=== PATIENT | female | born 1990 | race Hispanic/Latino ===

== ENCOUNTER 2017-07-06 18:43 | Emergency (ER) | payer MEDICARE, MEDICAID ==
[~2017-07-06] VITALS: Ht 170.2 cm; Wt 128.4 kg
[2017-07-06 19:04] VITALS: BP 119/81; PULSE 114; RESP 17; O2SAT 97
--- NOTE | 2017-07-06 21:04 | ED.REPORT ---
HPI-General Illness Date of Service Jul 06, 2017 ED Provider: Andrzej Miller DO Pt is a deaf 26 year old female with a history of HTN who presents to the ED complaining of a worsening rash on her right inner thigh onset today. She c/o associated right leg pain with swelling and difficulty walking secondary to the pain. Pt also c/o associated cough onset 2 weeks ago. Pt denies rash appearance following shaving. She denies . [employer] was used to obtain HPI from patient. Nursing Notes Stated Complaint: COUGH,RASH/WELTS IN BETWEEN THIGHS,PAINFUL Chief Complaint: Skin Rash/Abscess Nursing Notes Reviewed: Yes Allergies: Coded Allergies: No Known Allergies (Verified , 05/13/14) General Time Seen by MD: 21:03 Chief Complaint Rash Hx Obtained From: Patient Arrived By: Walk-in Sudden in Onset?: No Onset Occurred: 5 - 8 hours ago Symptom Duration: Since onset Location: : Thigh right Quality: Painful Radiation: : Does not radiate Severity: Current: Moderate Severity: Maximum: Moderate Recent Healthcare: No recent doctor visit, No recent hospitalization Similar Sx Previous: No Past Medical History Past Medical History Deaf Reports: Hypertension (stopped taking medication) Past Surgical History Reports: Cholecystectomy (2008) Smoking History Unknown if Ever Smoker Social History Alcohol Use: Denies alcohol use Drug Use: Denies drug use Other Social History: Good social support Ambulatory Status Independent Review of Systems Full Review of Systems Respiratory: Reports: Non-productive cough, Denies: Shortness of breath Musculoskeletal: Reports: Extremity pain Skin: Reports Rash, Reports Swelling Complete sys rev & neg: except as marked. Physical Exam Vital Signs Vital Signs Date Time Temp Pulse Resp B/P Pulse Ox O2 Delivery O2 Flow Rate FiO2 07/07/17 00:55 36.6 86 18 116/72 95 Room Air 07/06/17 22:30 37.2 92 22 141/78 94 Room Air 07/06/17 19:04 37.6 114 17 119/81 97 Room Air Initial VS: Reviewed Head / Eyes: Atraumatic, Normocephalic Neck: Supple, Full range of motion Cardiovascular: Regular rate & rhythm (heart rate 88), Heart sounds normal , Intact distal pulses Abdomen / GI: Soft, Non-tender Skin: Warm, Dry, No cyanosis Neurologic: Alert, Oriented, Nonfocal Psychiatric: Mood/affect normal, Behavior normal Respiratory / Chest: Atraumatic, Breath sounds = bilat Crackles in right upper lung field. Upper Extremities Upper Extremity / MS: Full range of motion, Neurologic intact, Vascular intact Induration and cellulitis to 10x4 area of the right medial thigh. No evidence of of abscess formation and no palpable abscess. The cellulitis does not extend to her labia, genitilia, or abdominal wall. Interpretation & Diagnostics VENOUS DUPLEX: No abscess or DVT. Reactive lymph nodes Lab Results Interpretation Result Diagram: 07/06/17 [id number] Test 07/06/17 20:10 07/06/17 20:20 07/06/17 21:47 Hold Urine Received (Received) Hold Purple Top Tube Received (Received) White Blood Count 23.2th/mm3 (3.8-10.1) Red Blood Count 4.36mil/mm3 (3.90-5.20) Hemoglobin 12.8g/dL (12.0-15.6) Hematocrit 38.8% (35.0-46.0) Mean Corpuscular Volume 89.0fL (81-100) Mean Corpuscular Hemoglobin 29.4pg (27.0-35.0) Mean Corpuscular Hemoglobin Concent 33.0% (32.0-37.0) Red Cell Distribution Width 13.4% (12.3-15.4) Platelet Count 294bil/L (150-400) Neutrophils (%) (Auto) 81.4% (40-74) Lymphocytes (%) (Auto) 11.3% (14-46) Monocytes (%) (Auto) 5.7% (4-12) Eosinophils (%) (Auto) 0.8% (0-5) Basophils (%) (Auto) 0.2% (0-3) Sodium Level 136mEq/L (134-144) Potassium Level 4.0mEq/L (3.5-5.2) Chloride Level 99mEq/L (97-108) Carbon Dioxide Level 21mmol/L (18-29) Blood Urea Nitrogen 10mg/dL (6-20) Creatinine 0.76mg/dL (0.57-1.00) Estimat Glomerular Filtration Rate 134mL/min (>59) Glucose Level 109mg/dL (60-99) Calcium Level 9.1mg/dL (8.5-10.1) Total Bilirubin 0.7mg/dL (0.0-1.2) Aspartate Amino Transf (AST/SGOT) 24U/L (0-50) Alanine Aminotransferase (ALT/SGPT) 44U/L (0-32) Alkaline Phosphatase 93U/L (25-150) Total Protein 8.5g/dL (6.4-8.4) Albumin 4.0g/dL (3.4-5.0) Hold Shaw Top Tube Received (Received) X-Ray Chest Interpretation Chest Xray Interpretation: Negative View: Portable, 1 view Interpretation / Wet Read by: Wet read ED physician US Abdominal Aorta Re-Eval/Medical Decision Med Decision/Clinical Course Cellulitis of the right proximal thigh. The cellulitis does not involve her anterior abdominal wall or genitalia. No evidence of foreign years gangrene. No abscess was seen on ultrasound. Patient received IV clindamycin and she felt better. Pain medication help. She does have a prominent leukocytosis however I think this is a stress reaction as well as related to the infection. Either way she meets criteria for discharge home. She is well-appearing. No signs of cellulitis. Stable and normal vital signs. DVT ruled out. Will recheck tomorrow. Chest x-ray was normal. Source of Hx: Old records Time of Eval: 23:14 Re-Evaluation/Progress Note: Pt rechecked. Informed pt of plan for discharge. Pt understands and agrees with plan for discharge. F/U instructions and RTER warnings given. All questions addressed. Counseled Regarding: Diagnosis, Need for follow-up, When/why to return to ED Discharge & Departure Primary Impression: Cellulitis of right thigh Disposition: Home Discharge Condition All VS Reviewed: Yes Condition: Stable Patient Instructions: Cellulitis (ED) Additional Instructions: Take Clindamycin 4x daily for 7 days. Stop taking it if you develop diarrhea, and have yourself tested for C-diff. Take 1-2 [place] every 6 hours as needed. Do not drive or drink alcohol or consume acetaminophen while taking [place]. I think you should come back for a recheck tomorrow. Call your primary care provider on Saturday for a follow up appointment next week. Return to the Emergency Department for any new or worrisome symptoms. The ultrasound did not show evidence for blood clot or an abscess. Your chest x -ray is normal. You do have an elevated white blood cell count I think this is a stress reaction related to the infection. We will recheck this tomorrow. Referrals: Grzegorz Bolden MD (PCP) Scribe Attestation Portions of this note were transcribed by Sheryl Campbell. I, Dr. Miller personally performed the history, physical exam and medical decision-making; I reviewed and confirmed the accuracy of the information in the transcribed note. Signed by : Fabi Shah, 07/06/17. copies to: Grzegorz Bolden MD, Todd P DO Jul 06, 2017 21:03 Sheryl Elam Jul 06, 2017 21:25
[2017-07-06] MEDS ORDERED: HYDROmorphone 0.5 mg/0.5 mL iSecure Syringe IVPUSH ONE (21:25)
[2017-07-06] MEDS ORDERED: Clindamycin Inj 900 MG in IV Premix 1 EACH IV ONE (21:25)
[2017-07-06] MEDS ORDERED: 0.9% Sodium Chloride 1,000 ML IV ONE (21:25)
[2017-07-06 22:01] LABS: BASOPHILS % (AUTO) 0.2 % (0-3); EOSINOPHILS % (AUTO) 0.8 % (0-5); MONOCYTES % (AUTO) 5.7 % (4-12); Mean Corpuscular Hemoglobin 29.4 pg (27.0-35.0); NEUTROPHILS % (AUTO) 81.4 % (40-74); Platelet Count 294 bil/L (150-400)
[2017-07-06 22:30] VITALS: BP 141/78; PULSE 92; RESP 22; O2SAT 94
[2017-07-06] MEDS ORDERED: HYDROcodone-APAP 5-325 mg Tablet PO ONE (23:10)
[2017-07-06] MEDS ORDERED: _HYDROcodone/APAP 5-325 mg Tablet PO PRN (23:20)
[2017-07-07] MEDS ORDERED: Sodium Chloride LOK Flush 10 mL Syringe IVFLUSH SCH (00:30)
[2017-07-07 00:55] VITALS: BP 116/72; PULSE 86; RESP 18; O2SAT 95
--- NOTE | 2017-07-07 12:24 | DRSVH ---
PROCEDURE: X-RAY CHEST, TWO VIEWS ([id number]) INDICATIONS: cough TECHNIQUE: 2 views of the chest were acquired. COMPARISON: [facility], CR, CHEST 2VW, 05/14/2014, 0:38. FINDINGS: Surgical changes and devices: None. Lungs and pleura: No pleural effusions or pneumothorax. There is elevation of the right hemidiaphra gm redemonstrated. Lungs are clear. Mediastinum: Mediastinal contours are normal. Heart size is normal. Bones and chest wall: No suspicious bony abnormalities. Soft tissues appear unremarkable. IMPRESSION: 1. No acute cardiopulmonary disease. Dictated by: Deniz Weber M.D. on 07/07/2017 at 12:22 Approved by: Deniz Weber M.D. on 07/07/2017 at 12:22
--- NOTE | 2017-07-07 12:28 | DRSVH ---
PROCEDURE: US VEINOUS LEG DUPLEX UNILATERAL, RIGHT INDICATIONS: right leg pain and swelling TECHNIQUE: Real-time imaging, as well as color and pulse Doppler interrogation, were performed of the lower extr emity deep veins from the inguinal ligament to the popliteal fossa. COMPARISON: None. FINDINGS: The deep veins are normally compressible, and free of intraluminal thrombus. Color and pu lse Doppler demonstrate normal phasic intraluminal flow. There is normal augmentation response to di stal compression maneuver. IMPRESSION: 1. No evidence of deep venous thrombosis in the right lower extremity. Dictated by: Deniz Weber M.D. on 07/07/2017 at 12:26 Approved by: Deniz Weber M.D. on 07/07/2017 at 12:26
== END 2017-07-07 00:57 | disposition home or self-care (01) ==
LOC: SED 18:43
DX: L03.115 Cellulitis of right lower limb (principal); R05 Cough; I10 Essential (primary) hypertension; H91.3 Deaf nonspeaking, not elsewhere classified; Z90.49 Acquired absence of other specified parts of digestive tract
CPT/HCPCS: 36415; 71020; 80053; 81025; 85025; 93971; 96365; 96375; 99285; J1170; J1885; J3490; J7030